=== PATIENT | female | born 1950 | race American Indian/Alaskan Native ===

== ENCOUNTER 2016-07-15 19:01 | Emergency (ER) | payer MEDICAID, MEDICARE ==
[2016-07-15 19:32] VITALS: BP 113/89
--- NOTE | 2016-07-15 19:41 | EDM.PDOC ---
ED HPI GENERAL MEDICAL PROBLEM - General Chief Complaint: General Stated Complaint: BRONCHITIS Time Seen by Provider: 07/15/16 19:34 Source of Information: Reports: Patient History Limitations: Reports: No limitations - History of Present Illness INITIAL COMMENTS - FREE TEXT/NARRATIVE: 66 yo [place] Female c/o cough and sinus drainage X 2 months w/ some green drainage. Pt. admits to smoking cigs @ 10/day Onset: gradual Onset Date: 05/17/16 Onset Time: 15:00 Duration: Week(s):, Intermittent Location: Reports: head (sinus drainage), chest Severity: moderate Improves with: Reports: None Associated Symptoms: Reports: cough w sputum - Related Data Allergies Allergy/AdvReac Type Severity Reaction Status Date / Time clindamycin Allergy Chest Verified 07/15/16 19:25 Presssure doxycycline Allergy Numbness Verified 07/15/16 19:25 erythromycin base Allergy Stomach Verified 07/15/16 19:25 Upset Home Meds: Home Meds Aspirin 325 mg PO DAILY 01/29/15 [History] Cetirizine HCl [Zyrtec] 10 mg PO DAILY 01/29/15 [History] DULoxetine [Cymbalta] 60 mg PO DAILY 01/29/15 [History] Levothyroxine [Synthroid] 100 mcg PO ACBREAKFAST 01/29/15 [History] Metoprolol Succinate [Toprol XL] 25 mg PO DAILY 01/29/15 [History] Simvastatin [Zocor] 40 mg PO BEDTIME 01/29/15 [History] traMADol [Take Home: traMADol 50 MG, 4 Tab Pack] 50 mg PO ASDIRECTED 01/29/15 [ History] Past Medical History HEENT History: Reports: Impaired vision Cardiovascular History: Reports: High cholesterol, Hypertension Respiratory History: Reports: None Gastrointestinal History: Reports: None Genitourinary History: Reports: None 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 Neurological History: Reports: None Psychiatric History: Reports: None Endocrine/Metabolic History: Reports: Hypoparathyroidism Hematologic History: Reports: None Immunologic History: Reports: None Oncologic (Cancer) History: Reports: None Dermatologic History: Reports: None Social & Family History - Tobacco Use Smoking Status *Q: Heavy Tobacco Smoker Years of Tobacco use: 40 Packs/Tins Daily: 0.5 - Caffeine Use Caffeine Use: Reports: Coffee - Recreational Drug Use Recreational Drug Use: No ED ROS GENERAL - Review of Systems Review Of Systems: See Below Constitutional: Reports: no symptoms HEENT: Reports: Rhinitis, Sinus problem Respiratory: Reports: Cough Cardiovascular: Reports: No symptoms Endocrine: Reports: no symptoms GI/Abdominal: Reports: No symptoms : Reports: no symptoms Musculoskeletal: Reports: no symptoms Skin: Reports: no symptoms Neurological: Reports: No Symptoms Psychiatric: Reports: No symptoms Hematologic/Lymphatic: Reports: no symptoms Immunologic: Reports: no symptoms ED EXAM, GENERAL - Physical Exam Exam: See Below Exam Limited By: No limitations General Appearance: alert, no apparent distress, obese Eye Exam: bilateral eye: PERRL Ears: normal external exam, normal canal Ear Exam: bilateral ear: TM bulging Nose: normal inspection, normal mucosa Throat/Mouth: Normal inspection, Normal lips, Normal teeth Head: atraumatic, normocephalic Neck: normal inspection, non-tender, full range of motion Respiratory/Chest: no respiratory distress, lungs clear, normal breath sounds, no accessory muscle use, chest non-tender Cardiovascular: normal peripheral pulses, regular rate, rhythm, no edema GI/Abdominal: normal bowel sounds, soft Back Exam: normal inspection Extremities: normal inspection Neurological: alert, oriented, CN II-XII intact Psychiatric: normal affect, normal mood Skin Exam: Warm, Dry, Intact, Normal color Lymphatic: no adenopathy Course - Vital Signs Last Recorded V/S: Last Vital Signs Temp 36.1 C 07/15/16 19:26 Pulse 67 07/15/16 19:26 Resp 18 07/15/16 19:26 BP 113/89 07/15/16 19:26 Pulse Ox 97 07/15/16 19:26 Departure - Departure Time of Disposition: 19:37 Disposition: Home, Self-Care 01 Condition: good Clinical Impression: Tobacco abuse, Cough in adult Sinusitis Qualifiers: Sinusitis location: unspecified location Chronicity: acute Recurrence: non- recurrent Qualified Code(s): J01.90 - Acute sinusitis, unspecified Forms: ED Department Discharge Additional Instructions: 1) Stop Cigarette smoking 2) Increase intake of Water / Juice 3) Take Vitamin C 3,000mg daily 4) Take the Medication as prescribed only- Amoxil 500mg BID # 14 5) Continue with your Radha for sinus drainage- Radha 180mg QD # 30 6) F/U w/ PCP
[2016-07-15] MEDS ORDERED: Amoxicillin 500 MG Cap PO ONE (19:42)
== END 2016-07-15 19:52 | disposition home or self-care (01) ==
LOC: DL.ED 19:01
DX: J01.90 Acute sinusitis, unspecified (principal); R05 Cough; E78.00 Pure hypercholesterolemia, unspecified; I10 Essential (primary) hypertension; E21.3 Hyperparathyroidism, unspecified; F17.210 Nicotine dependence, cigarettes, uncomplicated; Z88.8 Allergy status to other drugs, medicaments and biological substances
CPT/HCPCS: 99283; A9270

== ENCOUNTER 2016-11-08 22:01 | Emergency (ER) | payer SELFPAY ==
[2016-11-08 22:31] VITALS: BP 110/58
--- NOTE | 2016-11-09 00:08 | EDM.PDOC ---
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 MANAGER NC: Reports: Acetaminophen, NSAIDS - Related Data Allergies Allergy/AdvReac Type Severity Reaction Status Date / Time clindamycin Allergy Chest Verified 07/15/16 19:25 Presssure doxycycline Allergy Numbness Verified 07/15/16 19:25 erythromycin base Allergy Stomach Verified 07/15/16 19:25 Upset Home Meds: Home Meds Aspirin 325 mg PO DAILY 01/29/15 [History] Cetirizine HCl [Zyrtec] 10 mg PO DAILY 01/29/15 [History] DULoxetine [Cymbalta] 60 mg PO DAILY 01/29/15 [History] Levothyroxine [Synthroid] 100 mcg PO ACBREAKFAST 01/29/15 [History] Metoprolol Succinate [Toprol XL] 25 mg PO DAILY 01/29/15 [History] Simvastatin [Zocor] 40 mg PO BEDTIME 01/29/15 [History] traMADol [Take Home: traMADol 50 MG, 4 Tab Pack] 50 mg PO ASDIRECTED 01/29/15 [ History] Past Medical History HEENT History: Reports: Impaired Vision Cardiovascular History: Reports: High Cholesterol, Hypertension Respiratory History: Reports: None Gastrointestinal History: Reports: None Genitourinary History: Reports: None 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 Neurological History: Reports: None Psychiatric History: Reports: None Endocrine/Metabolic History: Reports: Hypoparathyroidism Hematologic History: Reports: None Immunologic History: Reports: None Oncologic (Cancer) History: Reports: None Dermatologic History: Reports: None Social & Family History - Tobacco Use Smoking Status *Q: Current Every Day Smoker Years of Tobacco use: 40 Packs/Tins Daily: 0.2 Used Tobacco, but Quit: No - Caffeine Use Caffeine Use: Reports: Coffee, Soda - Recreational Drug Use Recreational Drug Use: No ED ROS ENT - Review of Systems Review Of Systems: See Below Constitutional: Reports: No Symptoms HEENT: Reports: Nose Pain, Throat Pain Respiratory: Reports: No Symptoms. Denies: Wheezing, Pleuritic Chest Pain Cardiovascular: Reports: Chest Pain, Claudication, Dyspnea on Exertion, Lightheadedness, Palpitations. Denies: Blood Pressure Problem Musculoskeletal: Reports: No Symptoms Skin: Reports: No Symptoms ED EXAM, ENT - Physical Exam Exam: See Below Exam Limited By: No Limitations General Appearance: Alert, Mild Distress Eye Exam: Bilateral Eye: EOMI Ears: Normal External Exam, Hearing Grossly Normal Nose: Normal Inspection, Normal Mucousa, Nasal Discharge Mouth/Throat: Normal Teeth, Pharyngeal Erythema (mild), Throat Pain Head: Atraumatic, Normocephalic Neck: Normal Inspection. No: Lymphadenopathy (L), Lymphadenopathy (R) Respiratory/Chest: No Respiratory Distress, Lungs Clear, No Accessory Muscle Use Cardiovascular: Normal Peripheral Pulses GI/Abdominal: Normal Bowel Sounds Back: Normal Inspection Extremities: Normal Inspection Course - Vital Signs Last Recorded V/S: Last Vital Signs Temp 98.2 F 11/08/16 22:30 Pulse 79 11/08/16 22:30 Resp 20 11/08/16 22:30 BP 110/58 L 11/08/16 22:30 Pulse Ox 98 11/08/16 22:30 - Orders/Labs/Meds Orders: Active Orders 24 hr Category Date Time Status CULTURE STREP A CONFIRMATION [RM] Stat Lab 11/08/16 22:15 Results STREP SCRN A RAPID W CULT CONF [RM] Stat Lab 11/08/16 22:15 Results Departure - Departure Time of Disposition: 00:05 Disposition: Home, Self-Care 01 Condition: Good Clinical Impression: URI (upper respiratory infection) Pharyngitis Qualifiers: Pharyngitis/tonsillitis etiology: unspecified etiology Qualified Code(s): J02.9 - Acute pharyngitis, unspecified - Discharge Information Instructions: Upper Respiratory Infection, Adult Forms: ED Department Discharge Additional Instructions: fluids tylenol or ibuprofen for discomfort OTC robitussin or muccinex for sinus drainage chloraseptic throat spray as needed - My Orders Last 24 Hours: My Active Orders 11/08/16 22:15 CULTURE STREP A CONFIRMATION [RM] Stat STREP SCRN A RAPID W CULT CONF [RM] Stat - Assessment/Plan Last 24 Hours: My Active Orders 11/08/16 22:15 CULTURE STREP A CONFIRMATION [RM] Stat STREP SCRN A RAPID W CULT CONF [RM] Stat
== END 2016-11-09 00:12 | disposition home or self-care (01) ==
LOC: DL.ED 22:01
DX: J02.9 Acute pharyngitis, unspecified (principal); J06.9 Acute upper respiratory infection, unspecified; I10 Essential (primary) hypertension; E78.00 Pure hypercholesterolemia, unspecified; E20.9 Hypoparathyroidism, unspecified; F17.210 Nicotine dependence, cigarettes, uncomplicated; Z79.82 Long term (current) use of aspirin; Z79.899 Other long term (current) drug therapy; Z88.1 Allergy status to other antibiotic agents
CPT/HCPCS: 87081; 87430; 99282; 99283

== ENCOUNTER 2017-05-09 18:30 | Emergency (ER) | payer OTHER, MEDICARE, MEDICAID ==
[2017-05-09] MEDS ORDERED: ceFAZolin 1 GM Vial IVPUSH ONE (19:14)
[2017-05-09 19:32] LABS: SODIUM,NA 139 mmol/L (135-145)
[2017-05-09 19:33] LABS: ANION GAP 9.5; CHLORIDE,CL 105 mmol/L (101-111)
[2017-05-09] MEDS ORDERED: Morphine 2 MG/ML Syringe ONE (20:03)
[2017-05-09] MEDS ORDERED: Ondansetron 4 MG/2 ML SDV ONE (20:03)
--- NOTE | 2017-05-11 16:38 | EKG ---
05/09/2017 - ABRAM SHIN - FINDINGS: EKG per my reading shows sinus rhythm at the rate of 70s. MOD /[id number]
== END 2017-05-09 20:12 ==
LOC: DL.ED 18:30
DX: S82.301B Unspecified fracture of lower end of right tibia, initial encounter for open fracture type I or II (principal); S82.831B Other fracture of upper and lower end of right fibula, initial encounter for open fracture type I or II; S82.402A Unspecified fracture of shaft of left fibula, initial encounter for closed fracture; I10 Essential (primary) hypertension; I25.2 Old myocardial infarction; F17.200 Nicotine dependence, unspecified, uncomplicated; E03.9 Hypothyroidism, unspecified; V47.6XXA Car passenger injured in collision with fixed or stationary object in traffic accident, initial encounter
CPT/HCPCS: 29515; 36415; 71045; 73590; 73600; 80053; 85025; 85610; 93005; 93010; 96374; 96375; 99284; 99285; J0690; J2270; J2405

== ENCOUNTER 2018-05-13 19:14 | Emergency (ER) | payer MEDICARE, MEDICAID ==
[2018-05-13 19:28] VITALS: BP 122/65
--- NOTE | 2018-05-13 22:22 | EDM.PDOC ---
ED HPI GENERAL MEDICAL PROBLEM - General Chief Complaint: ENT Problem Stated Complaint: THROAT SORE Time Seen by Provider: 05/13/18 21:45 Source of Information: Reports: Patient, RN, RN Notes Reviewed History Limitations: Reports: No Limitations - History of Present Illness INITIAL COMMENTS - FREE TEXT/NARRATIVE: Patient presents to ER with complaint of sore throat. She can hardly swallow. She is using warm water gargles and cough drops. This began last night. She has had a runny nose and fever. No chills, nausea, vomiting or diarrhea. 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, NSAIDS, Other Medication(s) Headache Pain Score (Numeric/FACES): 3 Throat Pain Score (Numeric/FACES): 5 - Related Data Allergies Allergy/AdvReac Type Severity Reaction Status Date / Time clindamycin Allergy Chest Verified 05/13/18 19:21 Presssure doxycycline Allergy Numbness Verified 05/13/18 19:21 erythromycin base Allergy Stomach Verified 05/13/18 19:21 Upset Home Meds: Home Meds Aspirin 325 mg PO DAILY 01/29/15 [History] Cetirizine HCl [Zyrtec] 10 mg PO DAILY 01/29/15 [History] Levothyroxine [Synthroid] 100 mcg PO ACBREAKFAST 01/29/15 [History] Metoprolol Succinate [Toprol XL] 25 mg PO DAILY 01/29/15 [History] Simvastatin [Zocor] 40 mg PO BEDTIME 01/29/15 [History] Past Medical History HEENT History: Reports: Impaired Vision Cardiovascular History: Reports: High Cholesterol, Hypertension Respiratory History: Reports: Asthma Gastrointestinal History: Reports: None Genitourinary History: Reports: None 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 Neurological History: Reports: None Psychiatric History: Reports: None Endocrine/Metabolic History: Reports: Hypoparathyroidism Hematologic History: Reports: None Immunologic History: Reports: None Oncologic (Cancer) History: Reports: None Dermatologic History: Reports: None - Past Surgical History Cardiovascular Surgical History: Reports: Coronary Artery Stent Social & Family History - Family History Family Medical History: Noncontributory - Tobacco Use Smoking Status *Q: Current Some Day Smoker Years of Tobacco use: 47 Packs/Tins Daily: 0.2 Second Hand Smoke Exposure: Yes - Caffeine Use Caffeine Use: Reports: Coffee, Soda ED ROS ENT - Review of Systems Review Of Systems: ROS reveals no pertinent complaints other than HPI. ED EXAM, ENT - Physical Exam Exam: See Below Exam Limited By: No Limitations General Appearance: Alert, WD/WN, No Apparent Distress Eye Exam: Bilateral Eye: EOMI, Normal Inspection, PERRL Ears: Normal External Exam, Normal Canal, Hearing Grossly Normal, Normal TMs Nose: Normal Inspection, Normal Mucousa, No Blood Mouth/Throat: Normal Inspection, Normal Gums, Normal Lips, Normal Oropharynx, Normal Teeth Head: Atraumatic, Normocephalic Neck: Normal Inspection, Supple, Non-Tender, Full Range of Motion Respiratory/Chest: No Respiratory Distress, Lungs Clear, Normal Breath Sounds, No Accessory Muscle Use, Chest Non-Tender Cardiovascular: Normal Peripheral Pulses, Regular Rate, Rhythm, No Edema, No Gallop, No JVD, No Murmur, No Rub GI/Abdominal: Normal Bowel Sounds, Soft, Non-Tender, No Organomegaly, No Distention, No Abnormal Bruit, No Mass (Female) Exam: Deferred Rectal (Female) Exam: Deferred Back: Normal Inspection, Full Range of Motion Extremities: Normal Inspection, Normal Range of Motion, Non-Tender, No Pedal Edema, Normal Capillary Refill Neurological: Alert, Oriented, CN II-XII Intact, Normal Cognition, Normal Gait, Normal Reflexes, No Motor/Sensory Deficits Psychiatric: Normal Affect, Normal Mood Skin: Warm, Dry, Intact, Normal Color, No Rash Lymphatic: No Adenopathy Course - Vital Signs Last Recorded V/S: Last Vital Signs Temp 99.2 F 05/13/18 19:27 Pulse 75 05/13/18 19:27 Resp 18 05/13/18 19:27 BP 122/65 05/13/18 19:27 Pulse Ox 96 05/13/18 19:27 Departure - Departure Time of Disposition: 22:20 Disposition: Home, Self-Care 01 Condition: Fair Clinical Impression: Viral upper respiratory illness - Discharge Information *PRESCRIPTION DRUG MONITORING PROGRAM REVIEWED*: No *COPY OF PRESCRIPTION DRUG MONITORING REPORT IN PATIENT LILIA: No Instructions: Cough, Adult, [id number], Viral Respiratory Infection, Easy-To- Read, Upper Respiratory Infection, Adult, [id number] Referrals: PCP,Unobtain [Ordering Only Provider] - Forms: ED Department Discharge Additional Instructions: RX: Jose AC for cough Drink plenty of water May use Tylenol and/or Ibuprofen as directed for pain/fever Follow up with your primary care facility
== END 2018-05-13 22:26 | disposition home or self-care (01) ==
LOC: DL.ED 19:14
DX: J06.9 Acute upper respiratory infection, unspecified (principal); I10 Essential (primary) hypertension; F17.210 Nicotine dependence, cigarettes, uncomplicated; Z88.1 Allergy status to other antibiotic agents
CPT/HCPCS: 87081; 87430; 99283

== ENCOUNTER 2021-07-12 08:40 | Day surgery (SDC) | payer MEDICARE, MEDICAID ==
[~2021-07-12 08:40] MED LIST: Acetaminophen 325 MG Tab PO PRN; Acetaminophen/Codeine 300-30 MG Tab PO PRN; Cataract Ophth Solution EYELF ONE; Moxifloxacin 0.5% Ophth Soln 3 ML Bottle EYELF ONE; Ondansetron 4 MG/2 ML SDV IVPUSH PRN; Phenylephrine 10% Ophth Soln 5 ML Bot EYELF ONE; Povidone-Iodine 5% Sterile Ophth Soln 30 ML Bottle EYELF ONE; Proparacaine 0.5% Ophth Soln 15 ML Bottle EYELF ONE; Sodium Chloride 0.9% 10 ML Syringe FLUSH PRN; Timolol Maleate 0.5% Ophth Soln 5 ML Bottle EYELF ONE; Tropicamide 1% Ophth Soln 15 ML Bottle EYELF ONE
[2021-07-12] MEDS ORDERED: Sodium Chloride 0.9% 10 ML Syringe IV ONE (08:41)
[2021-07-12] MEDS ORDERED: Dexamethasone 4 MG/ML SDV IV ONE (08:41)
[2021-07-12] MEDS ORDERED: Midazolam 1 MG/ML 2 ML SDV IV ONE (08:41)
[2021-07-12] MEDS ORDERED: Tetracaine HCl/PF 0.5% 4 ML Bottle EYELF ONE (09:55)
[2021-07-12] MEDS ORDERED: Lidocaine 1% 30 ML SDV ONE (09:56)
[2021-07-12] MEDS ORDERED: Povidone-Iodine 5% Sterile Ophth Soln 30 ML Bottle EYELF ONE (09:56)
[2021-07-12] MEDS ORDERED: Apraclonidine 0.5% Ophth Soln 5 ML Bot EYELF ONE (09:57)
[2021-07-12] MEDS ORDERED: Dexamethasone/Neomycin/Polymyxin B Ophth Oint 3.5 GM Tube EYELF ONE (09:57)
[2021-07-12] MEDS ORDERED: Diclofenac Sodium 0.1% Ophth Soln 5 ML Bottle EYELF ONE (09:57)
[2021-07-12] MEDS ORDERED: Balanced Salt Solution Ophth Irrig 500 ML Bottle IOCULAR ONE (09:58)
[2021-07-12] MEDS ORDERED: Vancomycin 500 MG SDV EYELF ONE (09:58)
[2021-07-12] MEDS ORDERED: Dexamethasone 4 MG/ML SDV IOCULAR ONE (09:59)
[2021-07-12] MEDS ORDERED: Chondroitin Sulfate/Hyaluronate Sodium Ophth Inj 0.5 ML Syringe IOCULAR ONE (09:59)
[2021-07-12 11:06] VITALS: BP 122/63; PULSE 57
== END 2021-07-12 11:05 | disposition home or self-care (01) ==
LOC: DL.SDS 08:40
PROVIDERS: ATTEND Ophthalmology
DX: H25.813 Combined forms of age-related cataract, bilateral (principal); E03.9 Hypothyroidism, unspecified; I10 Essential (primary) hypertension; E78.5 Hyperlipidemia, unspecified; I25.10 Atherosclerotic heart disease of native coronary artery without angina pectoris; I25.2 Old myocardial infarction; E11.9 Type 2 diabetes mellitus without complications; M19.90 Unspecified osteoarthritis, unspecified site; F17.210 Nicotine dependence, cigarettes, uncomplicated; E55.9 Vitamin D deficiency, unspecified; F41.1 Generalized anxiety disorder; Z91.048 Other nonmedicinal substance allergy status; Z88.1 Allergy status to other antibiotic agents; Z79.890 Hormone replacement therapy; Z79.82 Long term (current) use of aspirin; Z79.899 Other long term (current) drug therapy
CPT/HCPCS: 66984; A9270; J1100; J2250; J3370; J3490; V2632

== ENCOUNTER 2021-07-26 08:20 | Day surgery (SDC) | payer MEDICARE, MEDICAID ==
[2021-07-26] MEDS ORDERED: Dexamethasone 4 MG/ML SDV IV ONE (08:21)
[2021-07-26] MEDS ORDERED: Sodium Chloride 0.9% 10 ML Syringe IV ONE (08:21)
[2021-07-26] MEDS ORDERED: Midazolam 1 MG/ML 2 ML SDV IV ONE (08:21)
[2021-07-26] MEDS ORDERED: Sodium Chloride 0.9% 10 ML Syringe FLUSH PRN (08:30)
[2021-07-26] MEDS ORDERED: Tropicamide 1% Ophth Soln 15 ML Bottle EYERT ONE (08:30)
[2021-07-26] MEDS ORDERED: Timolol Maleate 0.5% Ophth Soln 5 ML Bottle EYERT ONE (08:30)
[2021-07-26] MEDS ORDERED: Acetaminophen 325 MG Tab PO PRN (08:30)
[2021-07-26] MEDS ORDERED: Proparacaine 0.5% Ophth Soln 15 ML Bottle EYERT ONE (08:30)
[2021-07-26] MEDS ORDERED: Ondansetron 4 MG/2 ML SDV IVPUSH PRN (08:30)
[2021-07-26] MEDS ORDERED: Acetaminophen/Codeine 300-30 MG Tab PO PRN (08:30)
[2021-07-26] MEDS ORDERED: Cataract Ophth Solution EYERT ONE (08:30)
[2021-07-26] MEDS ORDERED: Phenylephrine 10% Ophth Soln 5 ML Bot EYERT ONE (08:30)
[2021-07-26] MEDS ORDERED: Moxifloxacin 0.5% Ophth Soln 3 ML Bottle EYERT ONE (08:30)
[2021-07-26] MEDS ORDERED: Povidone-Iodine 5% Sterile Ophth Soln 30 ML Bottle EYERT ONE ×2 (08:30→08:56)
[2021-07-26] MEDS ORDERED: Lidocaine 1% 30 ML SDV ONE (08:56)
[2021-07-26] MEDS ORDERED: Apraclonidine 0.5% Ophth Soln 5 ML Bot EYERT ONE (08:56)
[2021-07-26] MEDS ORDERED: Tetracaine HCl/PF 0.5% 4 ML Bottle EYERT ONE (08:56)
[2021-07-26] MEDS ORDERED: Diclofenac Sodium 0.1% Ophth Soln 5 ML Bottle EYERT ONE (08:57)
[2021-07-26] MEDS ORDERED: Vancomycin 500 MG SDV EYERT ONE (08:57)
[2021-07-26] MEDS ORDERED: Dexamethasone/Neomycin/Polymyxin B Ophth Oint 3.5 GM Tube EYERT ONE (08:57)
[2021-07-26] MEDS ORDERED: Balanced Salt Solution Ophth Irrig 500 ML Bottle IOCULAR ONE (08:57)
[2021-07-26] MEDS ORDERED: Chondroitin Sulfate/Hyaluronate Sodium Ophth Inj 0.5 ML Syringe IOCULAR ONE (08:58)
[2021-07-26] MEDS ORDERED: Dexamethasone 4 MG/ML SDV IOCULAR ONE (09:02)
[2021-07-26 11:13] VITALS: BP 128/64; PULSE 66
== END 2021-07-26 10:22 | disposition home or self-care (01) ==
LOC: DL.SDS 08:20
PROVIDERS: ATTEND Ophthalmology
DX: E11.36 Type 2 diabetes mellitus with diabetic cataract (principal); H25.813 Combined forms of age-related cataract, bilateral; I25.10 Atherosclerotic heart disease of native coronary artery without angina pectoris; I25.2 Old myocardial infarction; E03.9 Hypothyroidism, unspecified; I10 Essential (primary) hypertension; E78.5 Hyperlipidemia, unspecified; F17.210 Nicotine dependence, cigarettes, uncomplicated; M81.0 Age-related osteoporosis without current pathological fracture; F41.1 Generalized anxiety disorder; F32.A Depression, unspecified; Z88.1 Allergy status to other antibiotic agents; M19.90 Unspecified osteoarthritis, unspecified site; Z91.048 Other nonmedicinal substance allergy status; Z95.5 Presence of coronary angioplasty implant and graft; Z79.890 Hormone replacement therapy; Z79.82 Long term (current) use of aspirin; Z79.899 Other long term (current) drug therapy; Z01.812 Encounter for preprocedural laboratory examination; Z20.822 Contact with and (suspected) exposure to COVID-19
CPT/HCPCS: 00142; A9270-GY; J1100; J2250; J3370; J3490; U0002; V2632

== ENCOUNTER 2022-02-01 13:16 | Emergency (ER) | payer MEDICARE, MEDICAID ==
[2022-02-01 12:40] VITALS: BP 138/74; PULSE 72
[2022-02-01 13:11] LABS: PTT,PARTIAL THROMBOPLSTIN TIME 24.3 SEC (22.0-34.0)
[2022-02-01 13:16] LABS: ANION GAP 10.5 mEq/L (7-13); CHLORIDE,CL 107 mmol/L (98-107); SODIUM,NA 143 mmol/L (136-145)
[2022-02-01 13:17] LABS: ESTIMATED GFR 94 mL/min (>=60)
[2022-02-01] MEDS ORDERED: Heparin Sodium 5,000 Units/ML Vial IVPUSH ONE (13:34)
[2022-02-01] MEDS ORDERED: Heparin Sodium/0.45% NaCl 25,000 UNITS/500 ML BAG IV SCH (13:45)
[2022-02-01 14:16] LABS: AMPHETAMINES,URINE NEGATIVE (NEGATIVE); BARBITURATES,URINE NEGATIVE (NEGATIVE); BENZODIAZEPINE,URINE NEGATIVE (NEGATIVE); MDMA (ECSTASY), URINE NEGATIVE (NEGATIVE); METHADONE,URINE NEGATIVE (NEGATIVE); METHAMPHETAMINES,URINE NEGATIVE (NEGATIVE); OPIATES,URINE NEGATIVE (NEGATIVE); OXYCODONE,URINE NEGATIVE (NEGATIVE); PHENCYCLIDINE,URINE NEGATIVE (NEGATIVE); TCA,URINE NEGATIVE (NEGATIVE)
== END 2022-02-01 16:37 ==
LOC: DL.ED 13:16
DX: I21.4 Non-ST elevation (NSTEMI) myocardial infarction (principal); I25.10 Atherosclerotic heart disease of native coronary artery without angina pectoris; E78.00 Pure hypercholesterolemia, unspecified; I10 Essential (primary) hypertension; F17.210 Nicotine dependence, cigarettes, uncomplicated; Z88.1 Allergy status to other antibiotic agents; Z88.6 Allergy status to analgesic agent; Z88.8 Allergy status to other drugs, medicaments and biological substances; Z90.49 Acquired absence of other specified parts of digestive tract; Z20.822 Contact with and (suspected) exposure to COVID-19
CPT/HCPCS: 36415; 71045; 80053; 80305; 80307; 82150; 83605; 83690; 83735; 83880; 84484; 85025; 85379; 85610; 85730; 86140; 93005; 96365; 96366; 99285; J1644; U0002

== ENCOUNTER 2022-07-29 13:07 | Emergency (ER) | payer MEDICARE, MEDICAID ==
[2022-07-29 13:17] VITALS: BP 123/73; PULSE 99
[2022-07-29 13:56] LABS: ANION GAP 16.1 mEq/L (7-13)
[2022-07-29] MEDS ORDERED: Insulin Regular, Human 100 Units/ML 3 ML Vial IV ONE (14:00)
[2022-07-29] MEDS ORDERED: Glucagon,Human Recombinant 1 MG Vial IM PRN (14:00)
[2022-07-29] MEDS ORDERED: 50% Dextrose in Water 50 ML Syringe IVPUSH PRN (14:00)
[2022-07-29] MEDS ORDERED: Iopamidol 612 MG/ML 100 ML Bottle IVPUSH ONE (14:08)
== END 2022-07-29 15:24 | disposition home or self-care (01) ==
LOC: DL.ED 13:07
DX: K64.4 Residual hemorrhoidal skin tags (principal); E11.65 Type 2 diabetes mellitus with hyperglycemia; R31.9 Hematuria, unspecified; I25.10 Atherosclerotic heart disease of native coronary artery without angina pectoris; E78.00 Pure hypercholesterolemia, unspecified; I10 Essential (primary) hypertension; I25.2 Old myocardial infarction; E03.9 Hypothyroidism, unspecified; Z88.1 Allergy status to other antibiotic agents; Z79.02 Long term (current) use of antithrombotics/antiplatelets; Z79.899 Other long term (current) drug therapy; Z87.891 Personal history of nicotine dependence
CPT/HCPCS: 36415; 74178; 80053; 81001; 82947; 83735; 85025; 87070; 87077; 87186; 99284; J1815; Q9967

== ENCOUNTER 2023-09-14 15:59 | Emergency (ER) | payer MEDICARE, MEDICAID ==
[2023-09-14 17:11] VITALS: BP 140/76; PULSE 80
== END 2023-09-14 19:18 | disposition home or self-care (01) ==
LOC: DL.ED 15:59
DX: J06.9 Acute upper respiratory infection, unspecified (principal); I10 Essential (primary) hypertension; I25.10 Atherosclerotic heart disease of native coronary artery without angina pectoris; E78.00 Pure hypercholesterolemia, unspecified; I25.2 Old myocardial infarction; E11.9 Type 2 diabetes mellitus without complications; E03.9 Hypothyroidism, unspecified; Z90.49 Acquired absence of other specified parts of digestive tract; Z95.5 Presence of coronary angioplasty implant and graft; Z79.890 Hormone replacement therapy; Z79.899 Other long term (current) drug therapy; Z79.82 Long term (current) use of aspirin; Z88.1 Allergy status to other antibiotic agents
CPT/HCPCS: 87081; 87430; 87804; 99283; U0002

== ENCOUNTER 2023-10-19 18:36 | Emergency (ER) | payer MEDICARE, MEDICAID ==
[2023-10-19 19:03] VITALS: BP 150/80; PULSE 75
[2023-10-19] MEDS: Lidocaine 2% Jelly 5 ML Tube TOP ONE (20:56)
[2023-10-19] MEDS: Lidocaine 5% Oint 35.44 GM Tube TOP ONE (20:58)
[2023-10-19] MEDS: Take Home: hydrOXYzine HCl 25 MG Tab, 4 Tab Pack PO ONE (21:08)
== END 2023-10-19 21:25 | disposition home or self-care (01) ==
LOC: DL.ED 18:36
DX: M25.561 Pain in right knee (principal); I10 Essential (primary) hypertension; I25.10 Atherosclerotic heart disease of native coronary artery without angina pectoris; I25.2 Old myocardial infarction; E78.00 Pure hypercholesterolemia, unspecified; E11.9 Type 2 diabetes mellitus without complications; E03.9 Hypothyroidism, unspecified; Z90.49 Acquired absence of other specified parts of digestive tract; Z95.5 Presence of coronary angioplasty implant and graft; Z79.82 Long term (current) use of aspirin; Z79.890 Hormone replacement therapy; Z79.899 Other long term (current) drug therapy; Z88.1 Allergy status to other antibiotic agents
CPT/HCPCS: 73562; 99283; A9270

== ENCOUNTER 2023-11-23 22:39 | Emergency (ER) | payer MEDICARE, MEDICAID ==
[2023-11-24 02:45] VITALS: BP 148/74; PULSE 78
[2023-11-24] MEDS: Take Home: predniSONE 20 MG, 4 Tab Pack PO ONE (03:37)
== END 2023-11-24 03:40 | disposition home or self-care (01) ==
LOC: DL.ED 22:39
DX: U07.1 COVID-19 (principal); I10 Essential (primary) hypertension; I25.10 Atherosclerotic heart disease of native coronary artery without angina pectoris; I25.2 Old myocardial infarction; E78.00 Pure hypercholesterolemia, unspecified; E11.9 Type 2 diabetes mellitus without complications; E03.9 Hypothyroidism, unspecified; Z95.5 Presence of coronary angioplasty implant and graft; Z90.49 Acquired absence of other specified parts of digestive tract; Z79.890 Hormone replacement therapy; Z79.899 Other long term (current) drug therapy; Z79.82 Long term (current) use of aspirin; Z88.1 Allergy status to other antibiotic agents
CPT/HCPCS: 87804; 99283; A9270; U0002

== ENCOUNTER 2024-01-18 13:36 | Emergency (ER) | payer MEDICARE, MEDICAID ==
[2024-01-18 13:56] VITALS: BP 142/80; PULSE 74
[2024-01-18] MEDS: Dexamethasone 4 MG/ML SDV PO ONE (14:11)
[2024-01-18] MEDS: Acetaminophen/HYDROcodone 325-10 MG Tab PO ONE (14:11)
[2024-01-18 14:28] LABS: BASOPHILS PERCENT AUTO 0.6 % (0.0-1.0); EOSINOPHILS PERCENT AUTO 7.6 % (1.0-3.0); HEMATOCRIT 43.8 % (37.0-47.0); HEMOGLOBIN 14.4 g/dL (12.0-16.0); LYMPHOCYTES PERCENT AUTO 26.3 % (20.5-50.1); MEAN CORPUSCULAR HEMOGLOBIN 31.3 pg (27.0-34.0); MEAN CORPUSCULAR HGB CONC 32.9 g/dL (33.0-35.0); MEAN CORPUSCULAR VOLUME 95.2 fL (80-100); MONOCYTES PERCENT AUTO 9.1 % (2-8); NEUTROPHILS PERCENT AUTO 56.4 % (42.2-75.2); PLATELET COUNT,PLT 183 10^3/uL (150-450); WHITE BLOOD CELL COUNT,WBC 4.7 10^3/uL (5.0-10.0)
[2024-01-18 14:47] LABS: A/G RATIO 0.9; ALBUMIN 3.6 g/dL (3.4-5.0); ANION GAP 9.5 mEq/L (7-13); BILIRUBIN TOTAL 1.5 mg/dL (0.2-1.0); BUN/CREATININE RATIO 12.5 (No establ ref range); CALCIUM 9.3 mg/dL (8.5-10.1); CREATININE 0.88 mg/dL (0.55-1.02); EST CRCL DRUG DOSING (CG) 56.19 mL/min; MAGNESIUM 2.1 mg/dL (1.8-2.4); POTASSIUM,K 4.5 mmol/L (3.5-5.1); PROTEIN TOTAL,TP 7.7 g/dL (6.4-8.2)
[2024-01-18] MEDS: Take Home: Acetaminophen/HYDROcodone 325-5 MG, 5 Tab Pack PO ONE (15:34)
== END 2024-01-18 15:03 | disposition home or self-care (01) ==
LOC: DL.ED 13:36
DX: M54.16 Radiculopathy, lumbar region (principal); I25.10 Atherosclerotic heart disease of native coronary artery without angina pectoris; I25.2 Old myocardial infarction; I10 Essential (primary) hypertension; E78.00 Pure hypercholesterolemia, unspecified; E11.9 Type 2 diabetes mellitus without complications; E03.9 Hypothyroidism, unspecified; M19.90 Unspecified osteoarthritis, unspecified site; Z90.49 Acquired absence of other specified parts of digestive tract; Z88.1 Allergy status to other antibiotic agents; Z79.82 Long term (current) use of aspirin; Z79.899 Other long term (current) drug therapy; Z79.890 Hormone replacement therapy
CPT/HCPCS: 36415; 80053; 83735; 85025; 99283; A9270; J1100

== ENCOUNTER 2024-04-03 13:35 | Emergency (ER) | payer MEDICARE, MEDICAID ==
[2024-04-03] MEDS ORDERED: Sodium Chloride 0.9% 10 ML Syringe FLUSH PRN (13:51)
[2024-04-03 13:53] VITALS: BP 132/66; PULSE 66
[2024-04-03] MEDS: Aspirin 81 MG Tab.Chew PO ONE (13:54)
[2024-04-03 13:58] LABS: BASOPHILS PERCENT AUTO 0.6 % (0.0-1.0); EOSINOPHILS PERCENT AUTO 9.1 % (1.0-3.0); HEMATOCRIT 42.8 % (37.0-47.0); HEMOGLOBIN 14.2 g/dL (12.0-16.0); MEAN CORPUSCULAR HEMOGLOBIN 30.5 pg (27.0-34.0); MEAN CORPUSCULAR HGB CONC 33.2 g/dL (33.0-35.0); MEAN CORPUSCULAR VOLUME 91.8 fL (80-100); MONOCYTES PERCENT AUTO 9.5 % (2-8); NEUTROPHILS PERCENT AUTO 52.8 % (42.2-75.2); PLATELET COUNT,PLT 185 10^3/uL (150-450); RED BLOOD CELL COUNT 4.66 10^6/uL (4.2-5.4); WHITE BLOOD CELL COUNT,WBC 5.2 10^3/uL (5.0-10.0)
[2024-04-03 14:11] LABS: A/G RATIO 0.79; ALANINE AMINOTRANSFERASE,ALT 23 U/L (14-59); ALBUMIN 3.3 g/dL (3.4-5.0); ALKALINE PHOSPHATASE 186 U/L (46-116); ANION GAP 13.9 mEq/L (7-13); ASPARTATE AMNIOTRANSFERASE,AST 28 U/L (15-37); BILIRUBIN TOTAL 1.3 mg/dL (0.2-1.0); BLOOD UREA NITROGEN,BUN 12 mg/dL (7-18); BUN/CREATININE RATIO 16.7 (No establ ref range); C-REACTIVE PROTEIN < 0.50 ng/dL (<=0.50); CARBON DIOXIDE,CO2 28 mmol/L (21-32); CHLORIDE,CL 104 mmol/L (98-107); CREATININE 0.72 mg/dL (0.55-1.02); ESTIMATED GFR 89 mL/min (>=60); GLUCOSE RANDOM 272 mg/dL (70-99); POTASSIUM,K 3.9 mmol/L (3.5-5.1); PROTEIN TOTAL,TP 7.5 g/dL (6.4-8.2); SODIUM,NA 142 mmol/L (136-145)
[2024-04-03 14:13] LABS: PROTHROMBIN TIME 10.2 SEC (9.0-12.0)
[2024-04-03 14:40] LABS: APPEARANCE,URINE CLEAR (CLEAR); BILIRUBIN,URINE NEGATIVE (NEGATIVE); COLOR,URINE YELLOW (YELLOW); GLUCOSE,URINE >=1000 (NEGATIVE); KETONES,URINE TRACE (NEGATIVE); LEUKOCYTE ESTERASE,URINE NEGATIVE (NEGATIVE); NITRITE,URINE NEGATIVE (NEGATIVE); OCCULT BLOOD,URINE NEGATIVE (NEGATIVE); PROTEIN,URINE NEGATIVE (NEGATIVE)
== END 2024-04-03 15:06 | disposition home or self-care (01) ==
LOC: DL.ED 13:35
DX: R07.89 Other chest pain (principal); E78.00 Pure hypercholesterolemia, unspecified; I10 Essential (primary) hypertension; I25.10 Atherosclerotic heart disease of native coronary artery without angina pectoris; K21.9 Gastro-esophageal reflux disease without esophagitis; E11.9 Type 2 diabetes mellitus without complications; E03.9 Hypothyroidism, unspecified; Z90.49 Acquired absence of other specified parts of digestive tract; Z79.899 Other long term (current) drug therapy; Z79.84 Long term (current) use of oral hypoglycemic drugs; Z79.890 Hormone replacement therapy; Z88.1 Allergy status to other antibiotic agents; Z88.8 Allergy status to other drugs, medicaments and biological substances
CPT/HCPCS: 36415; 71046; 80053; 81003; 84484; 85025; 85610; 86140; 87428; 93005; 99285; A9270

== ENCOUNTER 2024-10-02 17:45 | Emergency (ER) | payer MEDICARE, MEDICAID ==
[2024-10-02 17:55] VITALS: BP 122/54; PULSE 70
[2024-10-02] MEDS: Albuterol 6.7 GM Inhaler INH ONE (18:20)
== END 2024-10-02 18:30 | disposition home or self-care (01) ==
LOC: DL.ED 17:45
DX: R05.3 Chronic cough (principal); I10 Essential (primary) hypertension; I25.10 Atherosclerotic heart disease of native coronary artery without angina pectoris; I25.2 Old myocardial infarction; E78.00 Pure hypercholesterolemia, unspecified; K21.9 Gastro-esophageal reflux disease without esophagitis; E11.9 Type 2 diabetes mellitus without complications; E03.9 Hypothyroidism, unspecified; Z95.5 Presence of coronary angioplasty implant and graft; Z79.899 Other long term (current) drug therapy; Z79.82 Long term (current) use of aspirin; Z88.1 Allergy status to other antibiotic agents
CPT/HCPCS: 99284; A9270; 99283